=== PATIENT | female | born 1960 | race Caucasian/White ===

== ENCOUNTER 2020-07-21 08:43 | Outpatient (CLI) | payer BC, SELFPAY ==
--- NOTE | ~2020-07-21 | MM_ITS ---
EXAMINATION: MM screening [facility] BI w esau HISTORY: Screening mammogram TECHNIQUE: Craniocaudal and mediolateral oblique 3-D tomosynthesis images were obtained and synthetic 2-D images were generated. CAD analysis was submitted and interpreted. COMPARISON: 03/09/2019, 09/08/2016, 05/08/2014 bilateral digital screening mammogram examinations BREAST PARENCHYMAL COMPOSITION: The breasts are almost entirely fatty. FINDINGS: There is no evidence of suspicious mass, calcification, or architectural distortion to sugg est malignancy in either breast. There has been no suspicious interval change. IMPRESSION: 1. No mammographic evidence of malignancy. 2. Recommend routine screening mammography in one year. BI-RADS Category 1: Negative Reviewed, dictated and finalized at location A.
== END 2020-07-21 08:44 | disposition home or self-care (01) ==
LOC: ANHIMG 08:51
PROVIDERS: PCP Internal Medicine; Visit Provider Internal Medicine
DX: Z12.31 Encounter for screening mammogram for malignant neoplasm of breast (principal)
CPT/HCPCS: 77063; 77067

== ENCOUNTER 2021-10-29 13:38 | Outpatient (CLI) | payer BC, SELFPAY ==
--- NOTE | ~2021-10-29 | DEXA_ITS ---
Bone Density Report Name: DU LOVETT Age: 60 Sex: Female Ethnicity: White Date of : 1960 Indication: postmenopausal; Referring Provider: JACOB*, MARTA Boone Study: Bone densitometry was performed. Exam Date: October 29, 2021 Accession number: [id number] Bone Density: Region BMD T-score Z-score Classification AP Spine (L1-L4) 1.040 -0.1 1.6 Normal Femoral Neck (Left) 0.900 0.5 1.9 Normal Total Hip (Left) 1.135 1.6 2.7 Normal Total Hip Bilateral Avg 1.085 1.1 2.3 Normal Femoral Neck (Right) 0.848 0.0 1.4 Normal Total Hip (Right) 1.033 0.7 1.8 Normal World Health Organization criteria for BMD impression classify patients as: Normal (T-score at or above -1.0), Osteopenia (T-score between -1.0 and -2.5), or Osteoporosis (T-score at or below -2.5). 10-year Fracture Risk: FRAX not reported because: All T-scores for Spine Total, Hip Total, Femoral Neck at or above -1.0 Previous Exams: Region Exam Age BMD T-score BMD Change BMD Change Date g/cm2 vs Baseline vs Previous AP Spine(L1-L4) 10/29/2021 60 1.040 -0.1 0.082(8.6%)# 0.058(5.9%)# 03/09/2014 53 0.983 -0.6 0.025(2.6%)# 0.009(0.9%)# 03/19/2011 50 0.974 -0.7 0.016(1.7%) 0.016(1.7%) 12/18/2007 47 0.958 -0.8 Total Hip(Left) 10/29/2021 60 1.135 1.6 0.065(6.1%)# 0.003(0.2%)# 03/09/2014 53 1.132 1.6 0.062(5.8%)# 0.061(5.7%)# 03/19/2011 50 1.072 1.1 0.001(0.1%) 0.001(0.1%) 12/18/2007 47 1.070 1.1 Total Hip(Right) 10/29/2021 60 1.033 0.7 0.014(1.3%)# -0.064(-5.9%)# 03/09/2014 53 1.097 1.3 0.078(7.7%)# 0.072(7.0%)# 03/19/2011 50 1.026 0.7 0.007(0.6%) 0.007(0.6%) 12/18/2007 47 1.019 0.6 *Denotes significance at 95% confidence level, LSC for AP Spine = 0.022 g/cm2, LSC for Total Hip = 0.027 g/cm2 Clinical Information Provided by Patient: Patient maximum height was 59.5 Menopause Age: 35 No regular weight bearing exercise Drinks caffeinated beverages Onset of menses at age 6 Number of children 0 Impression: The patient has normal bone mass. No significant bone loss was observed. Discussion: BONE DENSITY IS ABOVE THE MINIMUM DESIRABLE LEVEL AT ALL SKELETAL SITES TESTED. This patient?s bone mineral density is above the minimum desirable level (T-score -1.0 or better) at all sites measured. The patient should follow a healthful lifestyle (good nutrition with adequate calcium an
--- NOTE | ~2021-10-29 | MM_ITS ---
EXAMINATION: MM screening [facility] BI w esau HISTORY: Screening mammogram TECHNIQUE: Craniocaudal and mediolateral oblique 3-D tomosynthesis images were obtained and synthetic 2-D images were generated. CAD analysis was submitted and interpreted. COMPARISON: 07/21/2020, 03/09/2019, 09/08/2016 BREAST PARENCHYMAL COMPOSITION: There are scattered areas of fibroglandular density. FINDINGS: There is no evidence of suspicious mass, calcification, or architectural distortion to sugg est malignancy in either breast. There has been no suspicious interval change. IMPRESSION: 1. No mammographic evidence of malignancy. 2. Recommend routine screening mammography in one year. BI-RADS Category 1: Negative Reviewed, dictated and finalized at location A. ER LAW CLERK
== END 2021-10-29 13:39 | disposition home or self-care (01) ==
PROVIDERS: PCP Internal Medicine; Visit Provider Internal Medicine
DX: Z12.31 Encounter for screening mammogram for malignant neoplasm of breast (principal); M81.0 Age-related osteoporosis without current pathological fracture
CPT/HCPCS: 77063; 77067; 77080

== ENCOUNTER 2022-07-31 08:46 | Emergency (ER) | payer BC, SELFPAY ==
--- NOTE | ~2022-07-31 | XR_ITS ---
EXAMINATION: XR hip RT 2V w AP pelvis DATE: 07/31/2022 09:58 INDICATION: Right hip pain post fall TECHNIQUE: Anteroposterior view of the pelvis and anteroposterior and frog-leg lateral views of the a ffected hip were obtained. COMPARISON: None. FINDINGS: Bone alignment is normal. No fracture or suspected avascular necrosis. Mild bilateral hip osteoarthri tis with relatively preserved joint spaces. Small marginal osteophytes along the rims of the acetabul a. Mild bilateral sacroiliac osteoarthritis. Phlebolith in the right hemipelvis. IMPRESSION: 1. Mild osteoarthritis at the bilateral hip and sacroiliac joints. No acute osseous abnormality. Reviewed, dictated and finalized at location A. IMPRESSION: 1. Mild osteoarthritis at the bilateral hip and sacroiliac joints. No acute oss eous abnormality.
--- NOTE | ~2022-07-31 | XR_ITS ---
EXAMINATION: XR ankle RT min 3V INDICATION: Right ankle pain TECHNIQUE: Four views of the right ankle are obtained. COMPARISON: None available FINDINGS: Bone alignment is normal. There is no fracture. There is soft tissue swelling of ankle. Mil d osteoarthritis is noted. Posterior and plantar calcaneal enthesophytes are noted. IMPRESSION: 1. Soft tissue swelling without acute osseous abnormality. Reviewed, dictated and finalized at location B.
--- NOTE | ~2022-07-31 | XR_ITS ---
EXAMINATION: XR knee RT 3V DATE: 07/31/2022 09:58 INDICATION: Right knee pain TECHNIQUE: Three views of the right knee were obtained. COMPARISON: None. FINDINGS: Alignment is normal. No fracture or osteochondral lesion. There is mild tricompartmental os teoarthritis characterized by tiny marginal osteophytes. No joint effusion/synovitis. Soft tissues a re unremarkable. IMPRESSION: 1. No acute osseous abnormality. Reviewed, dictated and finalized at location B.
[2022-07-31 08:55] VITALS: BP 153/67; PULSE 94; RESP 20; TEMP 36.9; O2SAT 99
--- NOTE | 2022-07-31 09:17 | ED.LOWEXIN ---
HPI - Extremity Injury (Lower) General Chief Complaint: Extremity Injury, Lower Stated Complaint: R LEG INJURY S/P FALL Time Seen by Provider: 07/31/22 08:59 History of Present Illness HPI Narrative: 61-year-old female presents to the emergency room after having a ground-level fall this morning. She was camping out at [facility]. She was walking down an incline. She tripped and fell landing on her right side. She reports having pain in her right hip, right knee and right ankle. She says that the most pain is in her knee. She is not sure how she landed when she fell. Most of the pain is on the inside of her knee. She says that she has not been able to bear any weight on her right leg since it happened. She has not had anything for pain at this point. She denies having any back pain or neck pain. Denies having any headache. No injury to her upper extremities. No open wounds or lacerations. Related Data Allergies Allergy/AdvReac Type Severity Reaction Status Date / Time No Known Allergies Allergy Verified 07/31/22 09:03 Review of Systems Review of Systems: CONSTITUTIONAL: Denies fever, chills, or sweats. EYES: Denies visual changes, redness, or discharge. ENT: Denies rhinorrhea, congestion, sore throat, or otalgia. CARDIOVASCULAR: Denies chest pain, palpitations, or edema. RESPIRATORY: Denies cough or dyspnea. GASTROINTESTINAL: Denies abdominal pain, nausea, vomiting, or diarrhea. GENITOURINARY: Denies dysuria or hematuria. SKIN: Denies rash or itching. MUSCULOSKELETAL: as per HPI NEUROLOGIC: Denies headache, numbness, dizziness, or weakness. PSYCHIATRIC: Denies anxiety or depression. Exam Narrative: GENERAL: Well-appearing, well-nourished, and in no acute distress. HEAD: Normocephalic, atraumatic. EYES: PERRLA and EOMI. NECK: Supple. No adenopathy or masses. No carotid bruits or JVD CHEST: Clear to auscultation. No respiratory distress. No wheezes rales or rhonchi HEART: Regular rate and rhythm. No murmur heard. Normal peripheral pulses. ABDOMEN: Soft, nontender, nondistended, normal active bowel sounds. EXTREMITIES: Good ROM of right hip without pain, some tenderness with palpation of the right lateral hip, Right knee tender medially, increased pain with any manipulation of the joint, no bruising, swelling or deformity, right ankle without swelling, defomity or bruising, no tenderness. SKIN: Warm, dry, no rash. NEURO: No focal deficits. Alert and oriented x3. PSYCH: Normal mood and affect. Course Vital Signs Vital signs: Vital Signs Temperature 36.9 C 07/31/22 08:55 Pulse Rate 94 07/31/22 08:55 Respiratory Rate 20 07/31/22 08:55 Blood Pressure 153/67 H 07/31/22 08:55 Pulse Oximetry 99 07/31/22 08:55 Oxygen Delivery Room Air 07/31/22 08:55 Temperature 36.9 C 07/31/22 08:55 Pulse Rate 94 07/31/22 08:55 Respiratory Rate 20 07/31/22 08:55 Blood Pressure 153/67 H 07/31/22 08:55 Pulse Oximetry 99 07/31/22 08:55 Oxygen Delivery Room Air 07/31/22 08:55 MDM - Extremity Injury (Lower) Differential Diagnosis Differential diagnosis: Likely ankle sprain and strain, fracture of hip, ankle fracture and other (fracture of knee, knee sprain) Imaging Data Radiologist's impression: xray of right hip, right knee and right ankle do not demonstrate any fracture or acute finding Discharge Plan Discharge Clinical Impression: Right knee sprain, Mild sprain of right ankle, Acute pain of right hip, Fall Patient Disposition: Home, Self-Care Condition: Stable Instructions: Antibiotic Form, Knee Sprain (ED) Prescriptions: New hydrocodone-acetaminophen 5-325 mg tablet 1 tablet PO Q6H PRN (Reason: pain) Qty: 14 0RF (DME) walker Misc See Rx Instructions .Route Qty: 1 0RF Rx Instructions: As directed Follow-up/Referrals: Eduardo,Kirby Boone MD [Primary Care Provider] - (Follow up in 1 week) Time of Disposition: 10:33
[2022-07-31] MEDS: HYDROcodone/acetaminophen (*CRX) 7.5-325 MG TABLET 1 TAB PO (09:25)
[2022-07-31 11:47] VITALS: BP 152/67; PULSE 91; RESP 18; O2SAT 99
== END 2022-07-31 11:52 | disposition home or self-care (01) ==
PROVIDERS: Emergency Provider Nurse Practitioner Family; PCP Internal Medicine
DX: S83.91XA Sprain of unspecified site of right knee, initial encounter (principal); S93.401A Sprain of unspecified ligament of right ankle, initial encounter; S79.911A Unspecified injury of right hip, initial encounter; W10.2XXA Fall (on)(from) incline, initial encounter
CPT/HCPCS: 73502; 73562; 73610; 99284; A9270

== ENCOUNTER 2022-08-19 15:55 | Outpatient (CLI) | payer BC, SELFPAY ==
--- NOTE | ~2022-08-19 | MR_ITS ---
EXAMINATION: MR knee RT wo con DATE: 08/19/2022 16:49 INDICATION: Knee pain, popping, and swelling since a fall in July. TECHNIQUE: Magnetic resonance imaging (MRI) of the right knee was performed without intravenous contr ast. Sequences included axial PD-weighted FS FSE, coronal PD-weighted FSE and PD-weighted FS FSE, sag ittal PD-weighted FSE, and sagittal T2-weighted FS FSE. COMPARISON: X-ray knee 07/31/2022. FINDINGS: Medial compartment: Abnormal signal in the posterior horn, likely representing degenerative fraying or possibly a healed oblique undersurface tear. Abnormal signal in the meniscal body, with extrusion of a flap of meniscal tissue over the margin of the tibial plateau and possible meniscocapsular separation. Severe joint s pace narrowing. Severe diffuse thinning of cartilage, with a 2 mm focal cartilage defect on the media l femoral condyle. Moderate osteophytosis. Lateral compartment: Discoid lateral meniscus. Irregular oblique posterior horn tear, with extension to the meniscal under surface. Possible tear of the posterior meniscal strut. 6 mm area of near full-thickness cartilage lo ss on the lateral tibial plateau. Mild osteophytosis. Patellofemoral compartment: Moderate diffuse thinning of cartilage on the lateral facet. Moderate osteophytosis. Ligaments and tendons: Thickening of the quadriceps and patellar tendons as can be seen with chronic tear/tendinopathy. Abno rmal signal both superficial and deep to the otherwise intact MCL. The ACL is thinned but intact. Int act PCL and LCL. The IT band is normal. Mild abnormal signal at the musculotendinous junction and oscar ng the tendon of the semimembranosus. Mild abnormal signal along the pes anserine tendons Fluid: Moderate volume joint fluid. Osseous/other: No suspicious focal or diffuse marrow signal IMPRESSION: 1. Tear of the body, medial meniscus, with extrusion and meniscocapsular separation. 2. Discoid meniscus with a posterior horn tear and meniscocapsular separation. 3. Low-grade MCL sprain. 4. Mild semimembranosus strain. 5. Pes anserine tenosynovitis and bursitis Reviewed, dictated and finalized at location K. IMPRESSION: 1. Tear of the body, medial meniscus, with extrusion and meniscocapsular separa tion. 2. Discoid meniscus with a posterior horn tear and meniscocapsular separation. 3. Low-grade MCL sprain. 4. Mild semimembranosus strain. 5. Pes anserine tenosynovitis and bursitis
== END 2022-08-19 15:56 | disposition home or self-care (01) ==
PROVIDERS: PCP Internal Medicine; Visit Provider Orthopaedic Surgery
DX: S83.241D Other tear of medial meniscus, current injury, right knee, subsequent encounter (principal); S83.411D Sprain of medial collateral ligament of right knee, subsequent encounter; X58.XXXD Exposure to other specified factors, subsequent encounter
CPT/HCPCS: 73721

== ENCOUNTER 2022-11-21 09:41 | Outpatient (CLI) | payer BC, SELFPAY ==
--- NOTE | 2022-11-21 09:56 | ECG_ITS ---
Measurements Intervals [place] Rate: 91 P: 57 WY: 149 QRS: 8 QRSD: 85 T: 69 QT: 331 QTc: 409 Interpretive Statements SINUS RHYTHM NORMAL ECG NO PREVIOUS ECG AVAILABLE FOR COMPARISON Electronically Signed On 11-21-2022 10:21:51 PACKAGING ASSEMBLER by Dallin Abel D.O.
[2022-11-21 10:37] LABS: Anion Gap 6 mmol/L (8-16); Blood Urea Nitrogen 14 mg/dL (7-17); Calcium 9.1 mg/dL (8.4-10.2); Carbon Dioxide 28 mmol/L (22-30); Chloride 104 mmol/L (98-107); Estimated Glomerular Filt Rate > 60; Glucose 160 mg/dL (65-110); Potassium 4.3 mmol/L (3.4-5.0); Sodium 138 mmol/L (137-145)
== END 2022-11-21 09:42 | disposition home or self-care (01) ==
PROVIDERS: Anesthesiology; PCP Internal Medicine; Visit Provider Orthopaedic Surgery
DX: E11.9 Type 2 diabetes mellitus without complications (principal); Z01.818 Encounter for other preprocedural examination
CPT/HCPCS: 36415; 80048; 93005

== ENCOUNTER 2022-11-26 01:17 | Day surgery (SDC) | payer BC, SELFPAY ==
[2022-11-19 15:08] VITALS: BMI 42.3
--- NOTE | 2022-11-19 15:15 | PC.NURSE ---
Report to the Outpatient Waiting Room, entrance under the green pavilion located off [facility], at time 6:00 on date 11/26/22. Planned Procedure Time: 7:30. Time changes happen often and if your time is changed the preop area will call you the afternoon before. - You and your visitor will be asked to self-screen and do not enter if you have any COVID symptoms. - Only one visitor is requested with a max of two and NO children visitors are allowed at this time. - The patient visitor may be requested to leave or wait in car when not with patient due to distancing restrictions. - A mask is REQUIRED within the hospital. Patients may have clear liquids (water, carbonated beverages, clear teas, apple juice) until 3 hours prior to surgery (4:30) with a maximum of 20 ounces. - No food from midnight until time of surgery Take the following medications with a SIP of water the morning of surgery: NONE Medications to discontinue per physician: VITAMIN Date to take last dose: 11/22/[address] TILLEY'S INSTRUCTIONS REGARDING ASPIRIN Please no make-up, nail latvian, hairspray, perfume, deodorant, or body powder the day of surgery. No jewelry (including any body piercings) or valuables the day of surgery, leave them at home. Please take a shower or bath the night before, or the morning of, surgery with an antibacterial soap. Wear comfortable, loose fitting clothing. - Jewelry must be removed prior to entering the operating room. Rings and piercings that are not removed may be cut off. - The hospital will not accept responsibility for valuables. - Please leave all valuables, including medications, at home the day of surgery. If you are going home after surgery, a licensed company driver must drive you home. - NO public transportation without another adult if you receive anesthesia. - We recommend that an adult stay with you for 24 hours following discharge. - We also recommend that you do not drive, make important decision, drink alcoholic beverages, or take any drugs that were not prescribed by your health care provider for at least 24 hours after your discharge time. Follow any additional instructions given to you from your surgeon. If you or anyone in your household have experienced Covid symptoms in the past week, please notify your surgeon or the nurse liaison at the phone number below for possible testing. Telephone instructions given to PT - DU LOVETT and asked if any additional questions and then verbalized understanding. Patient advised to call surgeon office or pre surgery nurse liaison [phone] if any additional questions.
--- NOTE | 2022-11-21 14:34 | PM.IMHP ---
H&P: HPI History of Present Illness Date/Time: 11/21/22 14:34 Chief Complaint: The patient is a 62-year-old female who sees Dr. Hoyos regarding her right knee. The patient has a chronic ongoing history of pain localized to the medial portion of the knee with mechanical symptoms locking catching she has trouble twisting or turning on the knee she can not squat kneel go up and down stairs well. Patient has had pain and swelling for several months and limitation of her daily activities. Despite conservative measures including cortisone therapy and anti-inflammatories symptoms continue. An MRI scan was performed. This demonstrates abnormal signal in the posterior horn of the medial meniscus representing degenerative fraying possibly a healed oblique undersurface tear. There is a flap tear with extrusion in the meniscal body along with severe joint space narrowing and severe diffuse thinning of the cartilage of the medial femoral condyle. Lateral meniscus also showed shows a discoid lateral meniscus with irregular oblique posterior horn tear there is also near full-thickness cartilage loss to the lateral tibial plateau. Stabilizing ligaments the knee appeared to be intact with some thinning of the ACL. There is a moderate knee joint effusion and a possible low-grade MCL strain. There is pes anserine tenosynovitis and bursitis as well. At this point the patient has discussed further treatment options in detail Dr. Hoyso she is where she has pre-existing osteoarthritis and may not get full relief of her knee pain from knee arthroscopy however she would like to proceed. Review of Systems Review of Systems: Ten point review of systems otherwise negative [facility] Social History Social History Smoking packs per day: 1.5 Smoking cigarettes per day: 30.0 Years smoked: 38 Smoking pack-years: 57.00 Smoking status: Former smoker Tobacco type: cigarettes Smoking end date: 11/16/06 Alcohol intake: current Alcohol use details: SPECIAL OCCASIONS Substance use: never Substance use type: does not use Spiritual care concerns: No Meds Home Medications and Allergies Home Medications Medication Instructions Recorded Confirmed Type walker #1 ea 07/31/22 Rx aspirin 81 mg chewable tablet 81 mg PO DAILY 11/19/22 11/19/22 History atorvastatin 20 mg tablet 20 mg PO DAILY 11/19/22 11/19/22 History lisinopril 20 mg tablet 20 mg PO DAILY 11/19/22 11/19/22 History metformin 1,000 mg tablet 1,000 mg PO BID 11/19/22 11/19/22 History multivitamin 1 tablet PO DAILY 11/19/22 11/19/22 History Allergies Allergy/AdvReac Type Severity Reaction Status Date / Time No Known Allergies Allergy Verified 11/19/22 15:05 Exam Narrative: on exam the patient is noted to be 4 ft 11 in tall 204 lb. Well-developed well-nourished female no acute distress alert oriented x3. Normal mood and affect. Hearing and vision are intact. Respiratory is good no distress. Pulse regular rate rhythm. Abdomen benign. Extremities showed the patient's right knee to be painful with manipulation and range of motion she has tenderness on the medial joint line with reproduction of her symptoms with positive Patricia exam negative Sanchez knee joint is otherwise stable strength is 5 5 there is some crepitation through the arc of motion mild to moderate knee joint effusion no erythema heat or other signs of infection. Neurovascularly she is intact strength is 5 5 MRI scan is as above skin is intact without rashes or lesions. Central nervous system within normal limits. Assessment and Plan Assessment and plan (1) Tear of medial meniscus of right knee: Code(s): S83.241A - Other tear of medial meniscus, current injury, right knee, initial encounter Status: Acute (2) Discoid lateral meniscus of right knee: Code(s): Q68.6 - Discoid meniscus Status: Acute (3) Tear of lateral meniscu
--- NOTE | 2022-11-25 09:12 | WPDANESEPPF ---
Anes - Initial Pre Proc Eval Procedure: Operation Date: 11/26/22 10:00 Proposed Procedures p Right Knee Arthroscopy, Partial Medial Meniscectomy, Proceed As Indicated - Jayce Hoyos MD Date/Time: 11/25/22 09:12 Surgeon: Jayce Hoyos MD Pre Op Diagnosis: medial meniscal tear right knee Patient Data Age: 62 Gender: F Height: 1.5 m Weight: 95 kg Allergies Allergy/AdvReac Type Severity Reaction Status Date / Time No Known Allergies Allergy Verified 11/26/22 07:48 Home Medications Medication Instructions Recorded Confirmed Type walker #1 ea 07/31/22 Rx aspirin 81 mg chewable tablet 81 mg PO DAILY 11/19/22 11/26/22 History atorvastatin 20 mg tablet 20 mg PO DAILY 11/19/22 11/26/22 History lisinopril 20 mg tablet 20 mg PO DAILY 11/19/22 11/26/22 History metformin 1,000 mg tablet 1,000 mg PO BID 11/19/22 11/26/22 History multivitamin 1 tablet PO DAILY 11/19/22 11/26/22 History Patient hx anesthesia problems: none Family hx anesthesia problems: none Results Review: All pre-operative results and documents have been reviewed as part of the pre-operative evaluation. [facility] Past Medical History Medical History (Updated 11/25/22 @ 09:14 by Juan Linares DO) Diabetes type 2, controlled Hyperlipidemia Hypertension Surgical History Surgical History (Updated 11/25/22 @ 09:14 by Juan Linares DO) History of cholecystectomy History of tubal ligation Social History Social History Smoking packs per day: 1.5 Smoking cigarettes per day: 30.0 Years smoked: 38 Smoking pack-years: 57.00 Smoking status: Former smoker Tobacco type: cigarettes Smoking end date: 11/16/06 Alcohol intake: current Alcohol use details: SPECIAL OCCASIONS Substance use: never Substance use type: does not use Living arrangements: with family Spiritual care concerns: No Anes - Eval Final PreProcedure Day of Procedure 11/25/22 09:12 Patient weight: morbidly obese Heart: regular rate and rhythm Lungs: clear to auscultation Airway: Mallampati scale class II Neurological: alert and oriented Last oral intake: >/= 8 hours ASA classification: III Emergent: no Anesthetic plan: proceed Anesthesia type and monitoring: general LMA and standard monitoring Results Review: All pre-operative results and documents have been reviewed as part of the pre-operative evaluation. Informed Consent: The patient's anesthetic plan and its attendant risks and benefits were discussed with the patient/family/POA. Questions were solicited and answers provided to the satisfaction of the patient/family/POA.
[2022-11-26] VITALS (11 sets, daily range): BP systolic 110–137; BP diastolic 60–81; PULSE 79–98; RESP 12–20; TEMP 36.3–36.8; O2SAT 95–100
--- NOTE | 2022-11-26 07:09 | WPDHPUPDATE1 ---
History and Physical Update Update Date/Time: 11/26/22 07:09 History and Physical has been reviewed, including an updated exam of the patient. There are NO changes in the patient's condition. Risks, benefits, and alternatives have been discussed and questions answered. Patient agrees to proceed with procedure.
[2022-11-26] MEDS: ACETAMINOPHEN 500 MG TABLET 1000 MG PO (08:17)
[2022-11-26] MEDS: LACTATED RINGERS 1,000 ML 30 ML IV CONT (08:25)
[2022-11-26] MEDS: KETOROLAC 15 MG/ML VIAL (*BKC) IV PUSH (08:29)
[2022-11-26 08:31] LABS: Glucose Point of Care 153 mg/dl (65-105)
[2022-11-26] MEDS: ceFAZolin 2 GM/D5W 50 ML 2 GM/50 ML BAG IVPB (09:55)
--- NOTE | 2022-11-26 10:52 | W.PM.PROC2 ---
Procedure Note - Detailed Date of Procedure 11/26/22 Pre-op Diagnosis Medial meniscal tear right knee Lateral Discoid meniscal tear right knee Post-op Diagnosis Same Procedure Performed [Left] knee arthroscopy with partial meniscetomy, medial and lateral Surgeon Jayce Hoyos MD Anesthesia General Description of Procedure Patient brought to the operating room #7, and a general anesthetic was administered. The knee was steriley prepped and drapped in the usual manner. Standard portals were used. Superior medial portal was used for the outflow cannula, inferior lateral portal was used for the scope, inferior medial portal was used for the instruments. Arthroscopy was performed, the patellar femoral joint degenerative changes. The medial compartment showed a complex tear. The lateral compartment a very large for discoid meniscus. The ACL was intact. Using baskets and pablo the meniscal tear medially was trimmed back to a stable base so the nothing further could be pulled into the joint. For the lateral side meniscus was extremely thick and took some time to hold other 2 mold into a more normal looking meniscus. I started with a basket and biters through the tear and then shaved the edges to make it as smooth as possible. Any loose or delaminated fragments were gently trimmed to a stable base. At this point the instruments were withdrawn, sutures placed and patient left the operating room in satisfactory condition. She had grade 2-3 changes throughout the knee. Estimated Blood Loss 20 Drains No Packing No Pathology None sent Complications No immediate complications Condition Stable Disposition PACU
[2022-11-26] MEDS: fentaNYL CITRATE INJ (*CRX) 100 MCG/2 ML VIAL 25 MCG IV PUSH ×6 (11:08→11:49)
[2022-11-26 11:23] LABS: Glucose Point of Care 175 mg/dl (65-105)
[2022-11-26] MEDS: ONDANSETRON INJ 4 MG/2 ML VIAL IV PUSH (11:52)
[2022-11-26] MEDS: oxyCODONE HCL (*CRX) 5 MG TAB IR PO (13:04)
== END 2022-11-26 13:46 | disposition home or self-care (01) ==
PROVIDERS: PCP Internal Medicine; Visit Provider Orthopaedic Surgery
PROC: (CPT 29870; principal; 2022-11-26 10:00)
DX: Q68.6 Discoid meniscus (principal); M23.331 Other meniscus derangements, other medial meniscus, right knee; M23.361 Other meniscus derangements, other lateral meniscus, right knee; I10 Essential (primary) hypertension; E78.5 Hyperlipidemia, unspecified; E11.9 Type 2 diabetes mellitus without complications; Z79.84 Long term (current) use of oral hypoglycemic drugs; Z79.82 Long term (current) use of aspirin; Z87.891 Personal history of nicotine dependence; E66.01 Morbid (severe) obesity due to excess calories; Z68.41 Body mass index [BMI] 40.0-44.9, adult
CPT/HCPCS: 29880; 82948; A9270; J0690; J1885; J2250; J2405; J2704; J3010; J7120

== ENCOUNTER 2024-04-20 15:32 | Outpatient (CLI) | payer BC, SELFPAY ==
--- NOTE | ~2024-04-20 | MM_ITS ---
EXAMINATION: MM screening [facility] BI w esau HISTORY: Screening TECHNIQUE: Craniocaudal and mediolateral oblique 3-D tomosynthesis images were obtained and synthetic 2-D images were generated. CAD analysis was submitted and interpreted. COMPARISON: Comparison to multiple prior studies sequentially, with oldest reviewed study dated 08/17. BREAST PARENCHYMAL COMPOSITION: Not dense: There are scattered areas of fibroglandular density. FINDINGS: There is no evidence of suspicious mass, calcification, or architectural distortion to sugg est malignancy in either breast. There has been no suspicious interval change. IMPRESSION: 1. No mammographic evidence of malignancy. 2. Recommend routine screening mammography in one year. BI-RADS Category 1: Negative Reviewed, dictated and finalized at location B.
== END 2024-04-20 15:33 | disposition home or self-care (01) ==
LOC: ANHIMG 15:35
PROVIDERS: PCP Internal Medicine; Visit Provider Internal Medicine
DX: Z12.31 Encounter for screening mammogram for malignant neoplasm of breast (principal)
CPT/HCPCS: 77063; 77067

== ENCOUNTER 2025-09-12 07:31 | Outpatient (CLI) | payer BC, SELFPAY ==
--- NOTE | ~2025-09-12 | DEXA_ITS ---
Bone Density Report Name: DU LOVETT Age: 64 Sex: Female Ethnicity: White Date of : 1960 Indication: postmenopausal; screening for osteoporosis; Referring Provider: CAREY, MARTA [place] Study: Bone densitometry was performed. Exam Date: September 12, 2025 Accession number: [id number] Bone Density: Region BMD T-score Z-score Classification AP Spine(L1-L4) 0.968 -0.7 1.2 Normal Femoral Neck (Left) 0.816 -0.3 1.3 Normal Total Hip (Left) 1.098 1.3 2.6 Normal Femoral Neck (Right) 0.819 -0.3 1.3 Normal Total Hip (Right) 1.017 0.6 1.9 Normal Total Hip Mean 1.058 1.0 2.3 Normal World Health Organization criteria for BMD impression classify patients as: Normal (T-score at or above -1.0), Osteopenia (T-score between -1.0 and -2.5), or Osteoporosis (T-score at or below -2.5). 10-year Fracture Risk: FRAX not reported because: All T-scores for Spine Total, Hip Total, Femoral Neck at or above -1.0 Previous Exams: Region Exam Age BMD T-score BMD Change BMD Change Date g/cm2 vs Baseline vs Previous AP Spine (L1-L4) 09/12/2025 64 0.968 -0.7 -0.072 (-6.9%) -0.072 (-6.9%) 10/29/2021 60 1.040 -0.1 Total Hip(Left) 09/12/2025 64 1.098 1.3 -0.037 (-3.3%) -0.037 (-3.3%) 10/29/2021 60 1.135 1.6 Total Hip(Right) 09/12/2025 64 1.017 0.6 -0.015 (-1.5%) -0.015 (-1.5%) 10/29/2021 60 1.033 0.7 *Denotes significance at 95% confidence level, LSC for AP Spine = 0.022 g/cm2, LSC for Total Hip = 0.027 g/cm2 Clinical Information Provided by Patient: Patient maximum height was 60 Menopause Age: 35 No regular weight bearing exercise Drinks caffeinated beverages Onset of menses at age 6 Number of children 0 Impression: The patient has normal bone mass. The BMD for the AP Spine (L1-L4) decreased, changing by -6.9% since the last DXA exam. The BMD for the Total Hip(Left) decreased, changing by -3.3% since the last DXA exam. Discussion: BONE DENSITY IS ABOVE THE MINIMUM DESIRABLE LEVEL AT ALL SKELETAL SITES TESTED. This patient?s bone mineral density is above the minimum desirable level (T-score -1.0 or better) at all sites measured. The patient should follow a healthful lifestyle (good nutrition with adequate calcium and vitamin D, and appropriate weight-bearing exercise). Follow-Up: Consider repeating this study in 3 to 4 years to reassess this patient's status, or sooner if there is some new clinical indication. Reported by: MADY on 09/12/2025 8:30:00 AM. Reviewed, dictated and finalized at location A.
--- NOTE | ~2025-09-12 | MM_ITS ---
EXAMINATION: MM screening [facility] BI w esau HISTORY: Screening TECHNIQUE: Craniocaudal and mediolateral oblique 3-D tomosynthesis images were obtained and synthetic 2-D images were generated. CAD analysis was submitted and interpreted. COMPARISON: Comparison to multiple prior studies sequentially, with oldest reviewed study dated 09/08/2016. BREAST PARENCHYMAL COMPOSITION: Not dense: There are scattered areas of fibroglandular density. FINDINGS: There is no evidence of suspicious mass, calcification, or architectural distortion to suggest malignancy in either breast. There has been no suspicious interval change. IMPRESSION: 1. No mammographic evidence of malignancy. 2. Recommend routine screening mammography in one year. BI-RADS Category 1: Negative Reviewed, dictated and finalized at location B.
== END 2025-09-12 07:32 | disposition home or self-care (01) ==
PROVIDERS: PCP Internal Medicine; Visit Provider Internal Medicine
DX: Z12.31 Encounter for screening mammogram for malignant neoplasm of breast (principal); M81.0 Age-related osteoporosis without current pathological fracture
CPT/HCPCS: 77063; 77067; 77080